=== PATIENT | male | born 1950 | race Caucasian/White ===

== ENCOUNTER 2016-10-18 12:29 | Inpatient (IN) | payer BC ==
--- NOTE | ~2016-10-18 | HP ---
History And Physical [place] [id number] [facility] [place]. [address] NAME: JERI POLLARD : 52 STATUS : ADM IN [facility]#: [id number] AGE: 66 ADM/REG DATE : 10/18/16 MR#: [id number] REPORT SERV DATE: 10/18/16 DICTATED BY: LAURA ARCHER DATE: 10/18/16 REPORT STATUS : Draft TRANSCRIBED BY: MODL DATE: 10/18/16 DATE OF ADMISSION: 10/18/2016 REASON FOR ADMISSION: Uncontrolled sugars. CHIEF COMPLAINT: "I have been feeling weak, tired, very thirsty, been peeing a lot in the past couple of days." HISTORY OF PRESENT ILLNESS: A 66-year-old white male with no past medical history, has not seen primary care physician in many years because he has had no health issues. He recently from his about a year ago and moved to a assisted that was noted to have bedbugs. He was treated for bedbugs approximately four months ago, saw Dr. Lindsey, shipping room supervisor at [facility], and was given steroids. He followed up with her about two months ago complaining of some itching and she diagnosed him with some eczema and put him on a steroid cream. He says that his bedbugs have resolved. He presented today to [facility] ER with complaints of feeling fatigued, thirsty, just not feeling well. His initial blood sugar was found to be over 700. EMS gave him a dose of nitroglycerin. Dr. Nunes in the ER gave the patient about 3 L of fluids and units of insulin, his sugar has been brought down to the low 500s. Hospice was asked to admit for further evaluation. REVIEW OF SYSTEMS: The patient denies any chest pain or shortness of breath. Admits to some polydipsia and polyuria. PAST SURGICAL HISTORY: None. MEDICATIONS: None. ALLERGIES: NONE. 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 He quit smoking about two years ago. Up until that point in time, he was smoking one pack per day for about 40 years. Denies any alcohol. He is from his . No children. No illegal drugs. FAMILY HISTORY: Denies any diagnoses of cancer, hypertension, or diabetes. PHYSICAL EXAMINATION: VITAL SIGNS: Blood pressure is 167/78, temperature is 98, pulse 68, sat 98% on room air. GENERAL: He is in no acute distress. Alert and oriented x3. Very pleasant. HEENT: Normocephalic and atraumatic. Head, extraocular muscles are intact. Oropharynx is clear. NECK: Supple. No JVD. CARDIAC: Regular rhythm. No murmurs, rubs, or gallops. PULMONARY: Clear to auscultation bilaterally. ABDOMEN: Soft, nontender, nondistended. Positive bowel sounds. History And Physical [address] [address] NAME: JERI POLLARD : [birth year] STATUS : ADM IN [facility]#: [id number] AGE: 66 ADM/REG DATE : 10/18/16 MR#: [id number] REPORT SERV DATE: 10/18/16 DICTATED BY: LAURA ARCHER DATE: 10/18/16 REPORT STATUS : Draft TRANSCRIBED BY: IGOR DATE: 10/18/16 EXTREMITIES: Show no clubbing, cyanosis, or edema. SKIN: Warm and dry with multiple skin lesions in his upper extremities and lower extremities. PSYCHIATRIC: The patient is cooperative. Mood is appropriate. NEUROLOGICAL: He has no focal deficits. LABORATORY DATA: Labs show a sugar of 451. UA with 80 ketones, over 500 glucose, lactate . CMP: Sodium is 132, chloride is 94, BUN is 41, creatinine 1.9, alkaline phosphatase is 207. Acetone is moderate. Chest x-ray has no acute process. IMPRESSION: 1. Hyperglycemic hyperosmolar state. 2. Newly diagnosed diabetes type 2. 3. Recent bedbug treatment. 4. Acute kidney injury versus chronic kidney disease, stage 2. PLAN: To do aggressive IV fluid boluses. We will start on some insulin, check Accu-Cheks before meals and at bedtime along with sliding scale. We will check a hemoglobin A1c, obtain parent educator. The patient has expressed strong concern for not giving insulin, so we will likely need to transition him to oral even though he may remain uncontrolled. Anticipate discharging the patient home in two to three days. IASBEL/IGOR Laura Archer MD / [id number]
--- NOTE | ~2016-10-18 | CN ---
Consultation Report [facility] [address] [place]. [address] NAME: JERI POLLARD : 52 STATUS : ADM IN PAT#: [id number] AGE: 66 ADM/REG DATE : 10/18/16 MR#: [id number] REPORT SERV DATE: 10/20/16 DICTATED BY: LEWIS NAJERA DATE: 10/20/16 REPORT STATUS : Draft TRANSCRIBED BY: MODQuin DATE: 10/20/16 PSYCHIATRIC CONSULTATION DATE OF CONSULTATION: 10/20/2016 I reviewed this patient's medical record. I discussed his status with Dr. Gonzales, who is his hospitalist. I discussed his status with his nurse. HISTORY OF PRESENT ILLNESS: He was admitted with weakness, anxiety, depression, and poorly controlled diabetes mellitus. Since his admission, he has been roberson, depressed and occasionally tearful. PAST PSYCHIATRIC HISTORY: He reported a lifelong tendency to have anger problems. This was a more severe problem when he was younger. 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 He said he was prescribed an antidepressant back then and on multiple occasions since then, but he never had any good results that he can remember. He apparently has not stayed on medications for very long. [facility] [place] [facility], but he did not persist with a program there because he felt the providers and the staff were incompetent and did not care. SOCIAL HISTORY: He reports that his second of 18 years left him for a younger man about year ago. He is estranged from his two daughters from his first marriage. He drove a taxi for many years. He stopped working about a year ago. He now lives alone in what he describes as a very unattractive apartment. MENTAL STATUS: He engaged in a lot of self pitying. He tended to blame past providers especially at the [facility] for his lack of medical care. His mood was angry and dysphoric. His affect was appropriate. His thinking was logical. He had no delusions. He had no hallucinations. He had no suicidal intent. He was oriented to time, place, and person. DIAGNOSIS: Depressive disorder, not otherwise specified, with significant characterological traits. RECOMMENDATIONS: He was focused on getting admitted to [facility]. He said his ex- got very good treatment there and he was hoping he also might be helped. He said he can find his own way there by getting a free ride from [employer]. I have no objection to his going to [facility] to be evaluated for an inpatient or an outpatient program. In the meantime, I will start him on Lexapro 10 mg p.o. daily. I will sign off. WILDER/IGOR Lewis Najera M.D. Consultation Report [address] [address] NAME: JERI POLLARD : 52 STATUS : ADM IN PAT#: [id number] AGE: 66 ADM/REG DATE : 10/18/16 MR#: [id number] REPORT SERV DATE: 10/20/16 DICTATED BY: LEWIS NAJERA DATE: 10/20/16 REPORT STATUS : Draft TRANSCRIBED BY: IGOR DATE: 10/20/16 / [id number] CC: Delroy Gonzales II, MD
--- NOTE | ~2016-10-18 | DS ---
Discharge Summary [facility] [address] [place]. [address] NAME: JERI POLLARD : 52 STATUS : DIS IN PAT#: [id number] AGE: 66 ADM/REG DATE : 10/18/16 MR#: [id number] REPORT SERV DATE: 10/22/16 DICTATED BY: YOSSI BROWN II DATE: 10/21/16 REPORT STATUS : Draft TRANSCRIBED BY: MODL DATE: 10/21/16 ADMISSION DATE: 10/18/2016 DISCHARGE DATE: 10/21/2016 DISCHARGE DIAGNOSES: 1. Diabetic ketoacidosis with new onset diabetes mellitus type 2. 2. Acute kidney injury. 3. Depressive disorder, not otherwise specified. 4. Anion gap metabolic acidosis. 5. Hypokalemia. MOSS PICKER: Dr. Schmidt with Psychiatry. BRIEF HISTORY OF PRESENT ILLNESS: The patient is a 66-year-old male with the above past medical history, who presented to [facility] due to uncontrolled sugar, weak, tired, polydipsia, polyuria. For detailed history and physical examination, please see Dr. Archer's note from 10/18/2016. HOSPITAL COURSE: On admission, he had a lactic acid of 2.9, CO2 of 18, creatinine of 1.9, glucose of 710 with moderate acetone in the blood. He was treated for DKA with aggressive IV fluids and insulin. His anion gap closed and he was able to be maintained fairly well on Levemir 20 q.h.s. with a minimal amount with meals and glipizide 5 b.i.d. was started. His A1c was 17.1, remarkably likely due to his extremely poor choice of diet, including a gallon of sweet tea a day and ice cream given his dysgeusia. He was given aggressive diabetes education multiple times a day, working with his fear of insulin and teaching him how to manage blood sugar checks and FlexPens. The patient also reported very poor home situation, extreme depression, and anxiety hampering his ability to take care of himself and actually wanted to go straight to [facility] to see if he could maybe stay there and get care for his depression. Dr. Schmidt was actually consulted and thought he exhibited depressive disorder and started him on Lexapro. The patient actually while initially very self-defeating, self- pitying, and with a fairly negative outlook. After being treated for several days and getting his blood sugar under control, he actually noted improvement in his vision, feeling better, and is much more engaged and able to administer insulin himself. We have arranged a taxi to send him to [facility] to see about getting treated there either inpatient or outpatient. Overall, he is stable for discharge and have increased his Levemir to 25 subcutaneously q.h.s. and glyburide. The patient was discharged in stable condition. DISCHARGE MEDICATIONS: 1. Levemir 25 units subcutaneously q.h.s. 2. Glucotrol 5 mg p.o. b.i.d. 3. Lexapro 10 mg p.o. daily. DISCHARGE INSTRUCTIONS: The patient was arranged for new patient clinic appointment with the [facility] in one to two weeks. Otherwise, follow up with [facility] for further psychiatric care. Discharge Summary [address] [address] NAME: JERI POLLARD : 52 STATUS : DIS IN PAT#: [id number] AGE: 66 ADM/REG DATE : 10/18/16 MR#: [id number] REPORT SERV DATE: 10/22/16 DICTATED BY: YOSSI BROWN II DATE: 10/21/16 REPORT STATUS : Draft TRANSCRIBED BY: IGOR DATE: 10/21/16 NATHALIE/IGOR Yossi Brown II, MD / [id number] CC: Yossi Brown II, MD
[2016-10-18 11:24] LABS: BASOPHILS 0.1 %; BASOPHILS ABSOLUTE 0.01 10/3/uL (0.0-0.16); EOSINOPHILS 0.1 %; EOSINOPHILS ABSOLUTE 0.01 10/3/uL (0.0-0.53); ER CBC TAT 0 Hrs 12 Mins; HEMATOCRIT 45.2 % (40.0-51.0); HEMOGLOBIN 16.1 g/dL (13.6-17.8); IMMATURE GRANULOCYTES 0.4 %; IMMATURE GRANULOCYTES ABSOLUTE 0.06 10/3/uL (0.0-0.11); LYMPHOCYTES 12.2 %; LYMPHOCYTES ABSOLUTE 1.73 10/3/uL (0.67-4.30); MEAN CORPUS HGB CONC 35.6 g/dL (32.0-36.0); MEAN CORPUSCULAR HEMOGLOB 32.9 pg (26.0-34.0); MEAN CORPUSCULAR VOLUME 92.2 fL (80-100); MEAN PLATELET VOLUME 11.6 fL (9.2-13.0); MONOCYTES 4.8 %; MONOCYTES ABSOLUTE 0.68 10/3/uL (0.21-1.20); NEUTROPHILS 82.4 %; PLATELET COUNT 250 10/3/uL (150-400); RBC DISTRIBUTION WIDTH 12.4 % (12.0-16.0); WHITE BLOOD CELLS 14.2 10/3/uL (4.5-10.5)
[2016-10-18 11:26] LABS: MANUAL DIFF NO %
[2016-10-18 11:31] LABS: INTERNATIONAL NORMAL RATI 1.1 UNITS (-); PARTIAL THROMBO TIME 24.3 SEC (22.5-37.2); PROTIME (NOT ORD) 14.1 SEC (12.0-14.5)
[2016-10-18 11:37] LABS: LACTATE 2.9 MMOL/L (0.3-2.4)
[2016-10-18 11:39] LABS: A/G RATIO 0.8 (0.7-1.9); ALBUMIN 3.3 G/DL (3.5-5.0); ALKALINE PHOSPHATASE 207 U/L (45-117); BUN (BLOOD UREA NITROGEN) 41 MG/DL (6-23); CALCIUM, SERUM 9.2 MG/DL (8.5-10.4); CHLORIDE, SERUM 94 MMOL/L (96-112); CO2 (CARBON DIOXIDE) 18 MMOL/L (24-34); GFR AFRICAN AMERICAN 42 ML/MIN (>=60); GFR NON AFRICAN AMERICAN 36 ML/MIN (>=60); GLOBULIN 4.2 G/DL (2.5-4.1); POTASSIUM, SERUM 4.9 MMOL/L (3.5-5.3); SGOT(AST) 9 U/L (5-40); SGPT(ALT) 23 U/L (5-65); SODIUM, SERUM 132 MMOL/L (135-148); TOTAL BILIRUBIN 0.7 MG/DL (0-1.2); TOTAL PROTEIN 7.5 G/DL (6.0-8.5)
[2016-10-18 11:40] LABS: GLUCOSE, SERUM 710 MG/DL (60-99)
[2016-10-18 12:00] LABS: ASCORBIC ACID (UR NOT ORDER) NEG (NEG); BILIRUBIN, URINE NEGATIVE (NEG); ER URINALYSIS TAT 0 Hrs 09 Mins; KETONE, URINE 80 MG/DL (NEG); LEUKOCYTE ESTERASE(NOT OR NEG (NEG); NITRITE (URINE) NEG (NEG); WBC (NOT ORDERED) (RFLEX) 1 (0-5)
[2016-10-18 13:11] LABS: ACETONE MODERATE
[2016-10-18 13:29] LABS: PROCALCITONIN 0.09 ng/mL (<0.5)
[2016-10-18 18:52] LABS: BASOPHILS 0.1 %; BASOPHILS ABSOLUTE 0.01 10/3/uL (0.0-0.16); EOSINOPHILS 0.1 %; EOSINOPHILS ABSOLUTE 0.01 10/3/uL (0.0-0.53); HEMOGLOBIN 14.2 g/dL (13.6-17.8); IMMATURE GRANULOCYTES 0.5 %; IMMATURE GRANULOCYTES ABSOLUTE 0.06 10/3/uL (0.0-0.11); LYMPHOCYTES 19.6 %; LYMPHOCYTES ABSOLUTE 2.39 10/3/uL (0.67-4.30); MEAN CORPUS HGB CONC 35.3 g/dL (32.0-36.0); MEAN CORPUSCULAR HEMOGLOB 32.9 pg (26.0-34.0); MEAN CORPUSCULAR VOLUME 93.3 fL (80-100); MEAN PLATELET VOLUME 11.5 fL (9.2-13.0); MONOCYTES 5.6 %; MONOCYTES ABSOLUTE 0.68 10/3/uL (0.21-1.20); NEUTROPHILS 74.1 %; NEUTROPHILS ABSOLUTE 9.04 10/3/uL (2.02-8.40); PLATELET COUNT 199 10/3/uL (150-400); RBC DISTRIBUTION WIDTH 12.7 % (12.0-16.0); RED CELL COUNT 4.31 10/6/uL (4.7-6.1); WHITE BLOOD CELLS 12.2 10/3/uL (4.5-10.5)
[2016-10-18 18:53] LABS: HEMATOCRIT 40.2 % (40.0-51.0); MANUAL DIFF NO %
[2016-10-18 19:03] LABS: INTERNATIONAL NORMAL RATI 1.1 UNITS (-); PARTIAL THROMBO TIME 24.8 SEC (22.5-37.2); PROTIME (NOT ORD) 14.4 SEC (12.0-14.5)
[2016-10-18 19:13] LABS: A/G RATIO 0.8 (0.7-1.9); ALBUMIN 2.9 G/DL (3.5-5.0); CHLORIDE, SERUM 109 MMOL/L (96-112); CO2 (CARBON DIOXIDE) 16 MMOL/L (24-34); FERRITIN 1265 NG/ML (26-388); FREE T4 0.94 NG/DL (0.76-1.46); GLOBULIN 3.6 G/DL (2.5-4.1); IRON BINDING CAPACITY 202 MCG/DL (250-450); IRON, SERUM 94 MCG/DL (35-150); POTASSIUM, SERUM 4.3 MMOL/L (3.5-5.3); SGOT(AST) 13 U/L (5-40); SGPT(ALT) 15 U/L (5-65); TOTAL BILIRUBIN 0.5 MG/DL (0-1.2); TOTAL PROTEIN 6.5 G/DL (6.0-8.5)
[2016-10-18 19:14] LABS: ALKALINE PHOSPHATASE 178 U/L (45-117); BUN (BLOOD UREA NITROGEN) 31 MG/DL (6-23); CALCIUM, SERUM 8.2 MG/DL (8.5-10.4); GFR AFRICAN AMERICAN 61 ML/MIN (>=60); GFR NON AFRICAN AMERICAN 52 ML/MIN (>=60); GLUCOSE, SERUM 389 MG/DL (60-99); SODIUM, SERUM 142 MMOL/L (135-148)
[2016-10-18 20:44] LABS: ASCORBIC ACID (UR NOT ORDER) NEG (NEG); BILIRUBIN, URINE NEGATIVE (NEG); KETONE, URINE 80 MG/DL (NEG); LEUKOCYTE ESTERASE(NOT OR NEG (NEG); WBC (NOT ORDERED) (RFLEX) 1 (0-5)
[2016-10-19 06:30] LABS: BASOPHILS 0.1 %; BASOPHILS ABSOLUTE 0.01 10/3/uL (0.0-0.16); EOSINOPHILS 0.7 %; EOSINOPHILS ABSOLUTE 0.07 10/3/uL (0.0-0.53); HEMATOCRIT 37.6 % (40.0-51.0); HEMOGLOBIN 13.2 g/dL (13.6-17.8); IMMATURE GRANULOCYTES 0.3 %; IMMATURE GRANULOCYTES ABSOLUTE 0.03 10/3/uL (0.0-0.11); LYMPHOCYTES 29.8 %; LYMPHOCYTES ABSOLUTE 2.87 10/3/uL (0.67-4.30); MEAN CORPUS HGB CONC 35.1 g/dL (32.0-36.0); MEAN CORPUSCULAR HEMOGLOB 32.3 pg (26.0-34.0); MEAN CORPUSCULAR VOLUME 91.9 fL (80-100); MONOCYTES 7.1 %; MONOCYTES ABSOLUTE 0.68 10/3/uL (0.21-1.20); NEUTROPHILS ABSOLUTE 5.98 10/3/uL (2.02-8.40); PLATELET COUNT 155 10/3/uL (150-400); RBC DISTRIBUTION WIDTH 12.8 % (12.0-16.0); RED CELL COUNT 4.09 10/6/uL (4.7-6.1); WHITE BLOOD CELLS 9.6 10/3/uL (4.5-10.5)
[2016-10-19 06:31] LABS: MANUAL DIFF NO %
[2016-10-19 06:49] LABS: CALCIUM, SERUM 7.9 MG/DL (8.5-10.4); CHLORIDE, SERUM 114 MMOL/L (96-112); GFR AFRICAN AMERICAN 81 ML/MIN (>=60); GFR NON AFRICAN AMERICAN 70 ML/MIN (>=60); POTASSIUM, SERUM 3.7 MMOL/L (3.5-5.3); SODIUM, SERUM 143 MMOL/L (135-148)
[2016-10-19 06:50] LABS: BUN (BLOOD UREA NITROGEN) 24 MG/DL (6-23); CO2 (CARBON DIOXIDE) 20 MMOL/L (24-34); GLUCOSE, SERUM 171 MG/DL (60-99); PHOSPHORUS, SERUM 1.4 MG/DL (2.5-4.5)
[2016-10-20 04:45] LABS: BASOPHILS 0.2 %; BASOPHILS ABSOLUTE 0.01 10/3/uL (0.0-0.16); EOSINOPHILS 1.6 %; EOSINOPHILS ABSOLUTE 0.07 10/3/uL (0.0-0.53); HEMATOCRIT 34.7 % (40.0-51.0); IMMATURE GRANULOCYTES 0.2 %; IMMATURE GRANULOCYTES ABSOLUTE 0.01 10/3/uL (0.0-0.11); LYMPHOCYTES 41.5 %; LYMPHOCYTES ABSOLUTE 1.78 10/3/uL (0.67-4.30); MEAN CORPUS HGB CONC 34.6 g/dL (32.0-36.0); MEAN CORPUSCULAR HEMOGLOB 31.8 pg (26.0-34.0); MEAN PLATELET VOLUME 10.9 fL (9.2-13.0); MONOCYTES 8.4 %; MONOCYTES ABSOLUTE 0.36 10/3/uL (0.21-1.20); NEUTROPHILS 48.1 %; NEUTROPHILS ABSOLUTE 2.06 10/3/uL (2.02-8.40); PLATELET COUNT 103 10/3/uL (150-400); RBC DISTRIBUTION WIDTH 12.4 % (12.0-16.0); RED CELL COUNT 3.77 10/6/uL (4.7-6.1); WHITE BLOOD CELLS 4.3 10/3/uL (4.5-10.5)
[2016-10-20 04:46] LABS: MANUAL DIFF NO %
[2016-10-20 05:07] LABS: CALCIUM, SERUM 7.4 MG/DL (8.5-10.4); CHLORIDE, SERUM 112 MMOL/L (96-112); CREATININE 0.89 MG/DL (0.70-1.30); GFR AFRICAN AMERICAN 104 ML/MIN (>=60); GFR NON AFRICAN AMERICAN 90 ML/MIN (>=60); SODIUM, SERUM 146 MMOL/L (135-148)
[2016-10-20 05:08] LABS: BUN (BLOOD UREA NITROGEN) 14 MG/DL (6-23); CO2 (CARBON DIOXIDE) 26 MMOL/L (24-34); GLUCOSE, SERUM 84 MG/DL (60-99)
[2016-10-21 05:22] LABS: BASOPHILS 0.2 %; BASOPHILS ABSOLUTE 0.01 10/3/uL (0.0-0.16); EOSINOPHILS 1.5 %; EOSINOPHILS ABSOLUTE 0.07 10/3/uL (0.0-0.53); HEMATOCRIT 35.6 % (40.0-51.0); HEMOGLOBIN 12.6 g/dL (13.6-17.8); IMMATURE GRANULOCYTES 0.6 %; IMMATURE GRANULOCYTES ABSOLUTE 0.03 10/3/uL (0.0-0.11); LYMPHOCYTES ABSOLUTE 1.73 10/3/uL (0.67-4.30); MEAN CORPUS HGB CONC 35.4 g/dL (32.0-36.0); MEAN CORPUSCULAR HEMOGLOB 32.2 pg (26.0-34.0); MEAN PLATELET VOLUME 11.1 fL (9.2-13.0); MONOCYTES 9.4 %; MONOCYTES ABSOLUTE 0.44 10/3/uL (0.21-1.20); NEUTROPHILS 51.3 %; PLATELET COUNT 104 10/3/uL (150-400); RBC DISTRIBUTION WIDTH 12.3 % (12.0-16.0); RED CELL COUNT 3.91 10/6/uL (4.7-6.1); WHITE BLOOD CELLS 4.7 10/3/uL (4.5-10.5)
[2016-10-21 05:26] LABS: MANUAL DIFF NO %
[2016-10-21 05:33] LABS: CHLORIDE, SERUM 107 MMOL/L (96-112); CO2 (CARBON DIOXIDE) 28 MMOL/L (24-34); GFR AFRICAN AMERICAN 109 ML/MIN (>=60); GFR NON AFRICAN AMERICAN 94 ML/MIN (>=60); POTASSIUM, SERUM 3.4 MMOL/L (3.5-5.3); SODIUM, SERUM 141 MMOL/L (135-148)
[2016-10-21 05:35] LABS: BUN (BLOOD UREA NITROGEN) 9 MG/DL (6-23); GLUCOSE, SERUM 168 MG/DL (60-99)
[2016-10-21] MEDS ORDERED: LEVEMFLXPN SC (15:20)
[2016-10-21] MEDS ORDERED: LEXAPRO10 PO (15:21)
[2016-10-21] MEDS ORDERED: GLUCOTROL5 PO (15:21)
== END 2016-10-21 16:54 | disposition home or self-care (01) | DRG 638 ==
LOC: ER 12:29 → 4EA 16:57
PROVIDERS: Emergency Medicine; Internal Medicine
DX: E13.10 Other specified diabetes mellitus with ketoacidosis without coma (principal); N17.9 Acute kidney failure, unspecified; E87.2 Acidosis; N18.2 Chronic kidney disease, stage 2 (mild); F32.9 Major depressive disorder, single episode, unspecified; E87.6 Hypokalemia
CPT/HCPCS: 71010; 80048; 80053; 81001; 82009; 82728; 82962; 83036; 83540; 83550; 83605; 83735; 84100; 84145; 84439; 84443; 85025; 85610; 85730; 87040; 93005; 96374; 99285; A9270-GY